=== PATIENT | male | born 2000 | race Asian ===

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

== ENCOUNTER → 2019-04-28 | Outpatient (CLI) | payer OTHER ==
[2019-04-28 11:48] LABS: HEMOGLOBIN A1c 5.9 %
--- NOTE | 2019-04-28 12:19 | REP ---
Right knee series: Five views. History: Pain in the right knee. The patient relates a fall 2 weeks prior. Findings: Five views right knee demonstrate normal bones, joints and soft tissues. A normal fabella is seen. No fracture or subluxation is seen. There is no radiographic evidence of joint effusion. Impression: Negative radiographs of the right knee. Electronically Signed by Choco Chopra MD 04/28/2019 12:10 P
== END ==
LOC: M LAB 10:17
PROVIDERS: ATTEND Internal Medicine
DX: M25.561 Pain in right knee (principal); Z13.1 Encounter for screening for diabetes mellitus

== ENCOUNTER → 2019-05-29 | Outpatient (REF) | payer OTHER ==
[2019-05-29 12:24] LABS: CHOLESTEROL RISK RATIO 4.3 (<5)
== END ==
LOC: M SFHCPLAZ 10:39
PROVIDERS: ATTEND Family Medicine
DX: Z13.220 Encounter for screening for lipoid disorders (principal); R73.03 Prediabetes

== ENCOUNTER → 2019-08-28 | Outpatient (CLI) | payer OTHER ==
[2019-08-28 14:07] LABS: HEMOGLOBIN A1c 5.8 %
== END ==
LOC: M PLALAB 12:06
PROVIDERS: ATTEND Student in an Organized Health Care Education/Training Program
DX: R73.03 Prediabetes (principal)

== ENCOUNTER → 2020-01-18 | Outpatient (REF) | payer OTHER ==
[2020-01-18 17:24] LABS: HEMOGLOBIN A1c 5.8 %
== END ==
LOC: M SFHCPLAZ 15:24
PROVIDERS: ATTEND Student in an Organized Health Care Education/Training Program
DX: R73.03 Prediabetes (principal)

== ENCOUNTER → 2021-12-07 | Outpatient (REF) | payer OTHER, MEDICAID | LOC: M SFHCPLAZ 17:21 | PROVIDERS: ATTEND Family Medicine | DX: D23.61 Other benign neoplasm of skin of right upper limb, including shoulder (principal) ==

== ENCOUNTER → 2022-09-12 | Outpatient (CLI) | payer OTHER ==
[2022-09-12 17:20] LABS: HEMATOCRIT 48.4 % (42.0-52.0); MEAN CORPUSCULAR HEMOGLOBIN 30.1 pg (27.0-33.0); MEAN CORPUSCULAR HGB CONC 33.1 g/dl (32.0-36.5); MEAN CORPUSCULAR VOLUME 91.1 fl (80.0-96.0); PLATELET COUNT, AUTOMATED 284 10^3/uL (150-450); RED BLOOD COUNT 5.31 10^6/uL (4.30-6.10); WHITE BLOOD COUNT 7.7 10^3/uL (4.0-10.0)
[2022-09-12 17:48] LABS: ALBUMIN 4.3 G/DL (3.2-5.2); ALKALINE PHOSPHATASE 81 U/L (46-116); ALT/SGPT 29 U/L (7.0-40); AST/SGOT 16 U/L (<34); BILIRUBIN,TOTAL 0.6 MG/DL (0.3-1.2); BLOOD UREA NITROGEN 11 MG/DL (9-23); CALCIUM LEVEL 9.6 MG/DL (8.5-10.1); CARBON DIOXIDE LEVEL 28 MMOL/L (20-31); CHLORIDE LEVEL 105 MMOL/L (98-107); CREATININE FOR GFR 0.89 MG/DL (0.70-1.30); GLOMERULAR FILTRATION RATE > 60.0 (>60); GLUCOSE, FASTING 102 MG/DL (60-100); POTASSIUM SERUM 4.5 MMOL/L (3.5-5.1); SODIUM LEVEL 138 MMOL/L (136-145); TOTAL PROTEIN 7.2 G/DL (5.7-8.2)
[2022-09-12 17:49] LABS: THYROID STIMULATING HORMONE 3.853 uIU/ML (0.55-4.78)
[2022-09-12 17:50] LABS: FOLATE 11.47 NG/ML (>5.4); TOTAL 25(OH) VITAMIN D 10.6 NG/ML (20.0-100.0); VITAMIN B12 LEVEL 460 PG/ML (211-911)
[2022-09-12 17:59] LABS: HEMOGLOBIN A1c 5.5 % (4.0-6.0)
== END ==
LOC: M PLALAB 14:56
PROVIDERS: ATTEND Student in an Organized Health Care Education/Training Program
DX: R73.03 Prediabetes (principal); E66.01 Morbid (severe) obesity due to excess calories; F32.A Depression, unspecified; R53.83 Other fatigue

== ENCOUNTER → 2023-04-18 | Outpatient (CLI) | payer OTHER ==
[2023-04-18 17:13] LABS: CHOLESTEROL RISK RATIO 4.5 (<5); LDL CHOLESTEROL 111.8 MG/DL (<100); TOTAL 25(OH) VITAMIN D 9.3 NG/ML (20.0-100.0)
== END ==
LOC: M PLALAB 14:07
PROVIDERS: ATTEND Student in an Organized Health Care Education/Training Program
DX: E55.9 Vitamin D deficiency, unspecified (principal); E66.01 Morbid (severe) obesity due to excess calories

== ENCOUNTER 2023-06-12 14:22 | Emergency (ER) | payer MEDICAID, OTHER ==
[~2023-06-12] VITALS: Ht 170.2 cm; Wt 112.4 kg
[2023-06-12] MEDS ORDERED: VITA1CAP25 PO (14:28)
[2023-06-12] MEDS ORDERED: FLUT50SP17 NARES (14:28)
[2023-06-12] MEDS ORDERED: MED REC IN PROGRESS XX SCH (14:50)
[2023-06-12 15:07] LABS: HEMATOCRIT 48.8 % (42.0-52.0); HEMOGLOBIN 16.7 g/dl (13.5-17.5); MEAN CORPUSCULAR HEMOGLOBIN 30.9 pg (27.0-33.0); MEAN CORPUSCULAR HGB CONC 34.2 g/dl (32.0-36.5); MEAN CORPUSCULAR VOLUME 90.4 fl (80.0-96.0); PLATELET COUNT, AUTOMATED 296 10^3/uL (150-450); WHITE BLOOD COUNT 7.2 10^3/uL (4.0-10.0)
[2023-06-12] MEDS ORDERED: HOME MED LIST COMPLETE! XX SCH (15:30)
[2023-06-12 15:31] LABS: ETHYL ALCOHOL (ETHANOL) < 0.003 % (0.000-0.010)
[2023-06-12 15:33] LABS: ALBUMIN 4.8 G/DL (3.2-5.2); ALKALINE PHOSPHATASE 79 U/L (46-116); ALT/SGPT 34 U/L (7.0-40); AST/SGOT 17 U/L (<34); BILIRUBIN,DIRECT 0.3 MG/DL (<0.4); BLOOD UREA NITROGEN 9 MG/DL (9-23); CARBON DIOXIDE LEVEL 27 MMOL/L (20-31); CHLORIDE LEVEL 102 MMOL/L (98-107); GLOMERULAR FILTRATION RATE > 60.0 (>60); GLUCOSE, FASTING 93 MG/DL (60-100); SALICYLATE LEVEL < 3.0 MG/DL (<30); SODIUM LEVEL 138 MMOL/L (136-145); TOTAL PROTEIN 7.7 G/DL (5.7-8.2)
[2023-06-12 15:34] LABS: THYROID STIMULATING HORMONE 3.354 uIU/ML (0.55-4.78)
[2023-06-12 15:41] LABS: AMPHETAMINES LEVEL URINE NEGATIVE (NEGATIVE); BARBITURATES URINE NEGATIVE (NEGATIVE); BENZODIAZEPINES URINE NEGATIVE (NEGATIVE); COCAINE METABOLITE URINE NEGATIVE (NEGATIVE)
[2023-06-12 15:42] LABS: METHADONE URINE NEGATIVE (NEGATIVE); OPIATES URINE NEGATIVE (NEGATIVE); PHENCYCLIDINE URINE NEGATIVE (NEGATIVE)
[2023-06-12 15:46] LABS: CANNABINOIDS URINE POSITIVE (NEGATIVE)
[2023-06-12 17:36] VITALS: BP 141/77; TEMP 97.7; O2SAT 99
== END 2023-06-12 17:44 | disposition home or self-care (01) ==
LOC: M ED 14:22
DX: F32.A Depression, unspecified (principal); Z79.52 Long term (current) use of systemic steroids; Z79.899 Other long term (current) drug therapy

== ENCOUNTER → 2024-01-02 | Outpatient (REF) | payer OTHER ==
[~2024-01-02] MED LIST: FLUTISP NARES; VITA1CAP25 PO
[2024-01-02 19:03] LABS: BLOOD UREA NITROGEN 12 MG/DL (9-23); CALCIUM LEVEL 9.7 MG/DL (8.5-10.1); CARBON DIOXIDE LEVEL 30 MMOL/L (20-31); CHLORIDE LEVEL 105 MMOL/L (98-107); CHOLESTEROL LEVEL 199 MG/DL (<200); CHOLESTEROL RISK RATIO 4.26 (<5); CREATININE FOR GFR 0.78 MG/DL (0.70-1.30); GLOMERULAR FILTRATION RATE > 60.0 (>60); GLUCOSE, FASTING 87 MG/DL (60-100); HDL CHOLESTEROL 46.7 MG/DL (>40); LDL CHOLESTEROL 138.1 MG/DL (<100); NON-HDL-C 152.3 MG/DL; POTASSIUM SERUM 4.7 MMOL/L (3.5-5.1); SODIUM LEVEL 140 MMOL/L (136-145); TRIGLYCERIDES LEVEL 71 MG/DL (<150)
[2024-01-02 19:07] LABS: THYROID STIMULATING HORMONE 3.079 uIU/ML (0.55-4.78); TOTAL 25(OH) VITAMIN D 27.1 NG/ML (20.0-100.0)
== END ==
LOC: M PLALAB 17:00
PROVIDERS: ATTEND Student in an Organized Health Care Education/Training Program
DX: E78.00 Pure hypercholesterolemia, unspecified (principal); E55.9 Vitamin D deficiency, unspecified; L65.9 Nonscarring hair loss, unspecified

== ENCOUNTER → 2024-01-30 | Outpatient (CLI) | payer OTHER | LOC: M RAD 08:09 | PROVIDERS: ATTEND Student in an Organized Health Care Education/Training Program | DX: R10.13 Epigastric pain (principal) ==

== ENCOUNTER → 2024-03-30 | Outpatient (REF) | payer OTHER | LOC: M SFHCPLAZ 15:22 | PROVIDERS: ATTEND Student in an Organized Health Care Education/Training Program | DX: K21.9 Gastro-esophageal reflux disease without esophagitis (principal); Z79.899 Other long term (current) drug therapy; E78.00 Pure hypercholesterolemia, unspecified; L65.9 Nonscarring hair loss, unspecified; Z13.29 Encounter for screening for other suspected endocrine disorder; L83 Acanthosis nigricans ==

== ENCOUNTER → 2024-04-27 | Outpatient (CLI) | payer OTHER ==
[2024-04-27 16:28] LABS: BASO # 0.1 10^3/uL (0.0-0.2); BASO % 0.9 % (0.0-1.0); EOS # 0.2 10^3/uL (0.0-0.5); EOS % 2.9 % (0.0-3.0); HEMATOCRIT 50.7 % (42.0-52.0); HEMOGLOBIN 17.2 g/dl (13.5-17.5); LYMPH # 2.1 10^3/uL (1.5-5.0); LYMPH % 35.9 % (24.0-44.0); MEAN CORPUSCULAR HEMOGLOBIN 31.2 pg (27.0-33.0); MEAN CORPUSCULAR HGB CONC 33.9 g/dl (32.0-36.5); MEAN CORPUSCULAR VOLUME 91.8 fl (80.0-96.0); MONO # 0.4 10^3/uL (0.0-0.8); MONO % 7.6 % (2.0-8.0); NEUTROPHILS % 52.5 % (36.0-66.0); PLATELET COUNT, AUTOMATED 266 10^3/uL (150-450); RED BLOOD COUNT 5.52 10^6/uL (4.30-6.10); WHITE BLOOD COUNT 5.8 10^3/uL (4.0-10.0)
[2024-04-27 16:44] LABS: HEMOGLOBIN A1c 5.4 % (4.0-6.0)
[2024-04-27 16:59] LABS: ALBUMIN 4.8 G/DL (3.2-5.2); ALKALINE PHOSPHATASE 82 U/L (46-116); ALT/SGPT 29 U/L (7.0-40); AST/SGOT 9 U/L (<34); BLOOD UREA NITROGEN 12 MG/DL (9-23); CALCIUM LEVEL 10.4 MG/DL (8.5-10.1); CARBON DIOXIDE LEVEL 28 MMOL/L (20-31); CHLORIDE LEVEL 107 MMOL/L (98-107); CHOLESTEROL LEVEL 216 MG/DL (<200); CHOLESTEROL RISK RATIO 4.82 (<5); CORTISOL BASELINE 21.2 UG/DL (4.3-22.4); CREATININE FOR GFR 0.81 MG/DL (0.70-1.30); GLOMERULAR FILTRATION RATE > 60.0 (>60); GLUCOSE, FASTING 93 MG/DL (60-100); HDL CHOLESTEROL 44.8 MG/DL (>40); LDL CHOLESTEROL 150.2 MG/DL (<100); NON-HDL-C 171.2 MG/DL; POTASSIUM SERUM 4.4 MMOL/L (3.5-5.1); SODIUM LEVEL 140 MMOL/L (136-145); TOTAL PROTEIN 7.7 G/DL (5.7-8.2); TRIGLYCERIDES LEVEL 105 MG/DL (<150)
[2024-04-27 17:02] LABS: FREE T4 1.29 NG/DL (0.89-1.76); THYROID STIMULATING HORMONE 2.243 uIU/ML (0.55-4.78)
[2024-04-29 22:52] LABS: DEHYDROEPIANDROSTERONE SULFATE 330 mcg/dL (74-617)
== END ==
LOC: M PLALAB 14:09
DX: K21.9 Gastro-esophageal reflux disease without esophagitis (principal); E78.00 Pure hypercholesterolemia, unspecified; Z79.899 Other long term (current) drug therapy; L65.9 Nonscarring hair loss, unspecified; Z13.29 Encounter for screening for other suspected endocrine disorder; L83 Acanthosis nigricans

== ENCOUNTER → 2024-07-28 | Outpatient (REF) | payer OTHER | LOC: M SFHCPLAZ 15:27 | PROVIDERS: ATTEND Family Medicine | DX: Z02.89 Encounter for other administrative examinations (principal); K21.9 Gastro-esophageal reflux disease without esophagitis; E55.9 Vitamin D deficiency, unspecified ==

== ENCOUNTER → 2024-11-25 | Outpatient (CLI) | payer OTHER | LOC: M PLAIMG 12:29 | DX: M54.41 Lumbago with sciatica, right side (principal) ==

== ENCOUNTER → 2024-12-16 | Outpatient (REF) | payer OTHER | LOC: M SFHCPLAZ 10:48 | PROVIDERS: ATTEND Family Medicine | DX: K21.9 Gastro-esophageal reflux disease without esophagitis (principal); R53.82 Chronic fatigue, unspecified; E78.00 Pure hypercholesterolemia, unspecified; E55.9 Vitamin D deficiency, unspecified ==

== ENCOUNTER → 2025-02-24 | Outpatient (CLI) | payer OTHER ==
[~2025-02-24] MED LIST changes: +FAMO1TAB11 PO
== END ==
LOC: M LAB 12:18
DX: K21.9 Gastro-esophageal reflux disease without esophagitis (principal)